=== PATIENT | female | born 1995 | race Caucasian/White ===

== ENCOUNTER 2016-04-28 16:07 | Emergency (ER) | payer OTHER ==
[~2016-04-28] VITALS: Ht 162.6 cm; Wt 63.6 kg
[~2016-04-28 16:07] MED LIST: AMPH20TA2 PO; FLM4 PO; OXYC-57 PO
[2016-04-28 16:17] VITALS: TEMP 36.7; O2SAT 98; Ht 162.6 cm; Wt 63.6 kg
[2016-04-28 17:24] LABS: BASO % 0.8 %; BASO ABS # 0.05 K/uL (0-0.2); COMPLETE YES; EOS % 1.3 %; HEMATOCRIT 41.5 % (37-47); IG% 0.2 %; LYMPH % 31.3 %; LYMPH ABS # 1.96 K/uL (1.2-3.4); MEAN CELL VOLUME 85.7 fL (80-100); MEAN CORPUSCULAR HEMOGLOBIN 30.6 pg (25-34); MEAN CORPUSCULAR HGB CONC 35.7 g/dl (32-36); MEAN PLATELET VOLUME 9.1 fL (7.4-10.4); NEUT % 61.4 %; PLATELET COUNT 198 K/uL (130-400); RED BLOOD COUNT 4.84 M/uL (4.2-5.4); WHITE BLOOD COUNT 6.26 K/uL (4.8-10.8)
[2016-04-28 17:41] LABS: PREG INTERNAL NEGATIVE QC NEG CLEAR BACKGROUND; PREG INTERNAL POSITIVE QC POS CONTROL LINE
[2016-04-28 17:43] LABS: BUN/CREATININE RATIO 11.3 (10-20); CALCIUM 8.4 mg/dl (8.5-10.1); CREATININE 0.67 mg/dl (0.60-1.20); POTASSIUM 3.3 mmol/L (3.5-5.1)
--- NOTE | 2016-04-28 18:17 | DIAGNOSTIC IMAGING REPORT ---
CT OF THE HEAD WITHOUT CONTRAST CLINICAL HISTORY: Alcohol overdose. Evaluate for bleed. COMPARISON STUDY: No previous studies for comparison. CT DOSE: 1160.96 mGy.cm TECHNIQUE: Helical axial images of the head were obtained without IV contrast. Automated exposure control was utilized for the study. FINDINGS: This study is mildly compromised due to difficulty with patient positioning. Brain volume is normal. No acute intracranial hemorrhage, midline shift or mass effect is present. Ventricular system is normal. The basilar cisterns are patent. No extra-axial collections are present. Gibson-white differentiation is maintained. There is no calvarial fracture. IMPRESSION: 1. No acute intracranial findings. 2. No calvarial fracture. 3. Study mildly compromised due to difficulty with patient positioning. Electronically signed by: Steffen Read M.D. 04/28/2016 6:15 PM Dictated Date/Time: 04/28/2016 6:12 PM
[2016-04-28 23:03] VITALS: BP 127/86; PULSE 78; O2SAT 98
--- NOTE | 2016-04-28 23:24 | EMERGENCY ROOM VISIT NOTE ---
History Report prepared by Kendell: Yasmeen Hernandez Under the Supervision of: Dr. Carl Sanderson M.D. First contact with patient: 16:09 Stated Complaint: ALCOHOL OVERDOSE History of Present Illness The patient is a 20 year old female who presents to the Emergency Room with possible alcohol overdose. Per EMS, the [facility]. He states she was face down in the dirt. She was fully clothed. She denies any headache. She states she is not . This HPI is limited due to the patient's intoxication. Source of History: EMS History Limited By: intoxication Position: other (global) Quality: other (intoxication) Associated Symptoms: No headache Review of Systems See HPI for pertinent positives & negatives. ROS is limited due to patient's intoxication. Past Medical & Surgical Medical Problems: (1) No Known Active Medical Problems Social History Marital Status: single Housing Status: lives with roommate Occupation Status: [employer] student Current/Historical Medications Scheduled Amphetamine-Dextroamphetamine 20MG (Adderall 20MG), 20 MG PO QAM Tamsulosin HCl (Tamsulosin HCl), 0.4 MG PO QAM Scheduled PRN Oxycodone/Acetaminophen 5MG/325MG (Percocet 5MG/325MG), 2 TABLETS PO Q6H PRN for Pain Allergies Coded Allergies: No Known Allergies (Unverified , 12/03/15) Physical Exam Vital Signs Date Time Temp Pulse Resp B/P Pulse Ox O2 Delivery O2 Flow Rate FiO2 04/28/16 23:03 78 20 127/86 98 Room Air 04/28/16 22:22 85 04/28/16 21:58 80 16 113/82 100 Nasal Cannula 2.0 04/28/16 21:28 95 18 121/76 100 Nasal Cannula 2.0 04/28/16 20:58 106 18 131/77 100 Nasal Cannula 2.0 04/28/16 20:28 98 18 115/78 100 Nasal Cannula 2.0 04/28/16 19:58 98 16 132/74 100 Nasal Cannula 2.0 04/28/16 19:28 92 19 125/75 100 Nasal Cannula 2.0 04/28/16 18:58 94 19 121/68 100 Nasal Cannula 2.0 04/28/16 18:26 123 18 134/88 100 Nasal Cannula 2.0 04/28/16 17:00 91 16 129/81 100 Nasal Cannula 2.0 04/28/16 16:51 113 04/28/16 16:26 100 Nasal Cannula 2.0 04/28/16 16:25 93 16 77 Room Air 04/28/16 16:20 115 15 151/95 98 Room Air 04/28/16 16:17 36.7 106 20 140/93 98 Room Air 04/28/16 16:17 98 Room Air Physical Exam Constitutional: Vital signs reviewed. The patient is crying and hyperventilating. Eyes: Pupils are equal round reactive to light. Conjunctiva are noninjected. ENT: Normocephalic atraumatic. No signs of tenderness to the skull or erythema. There is a small abrasion to the lower lip which she states her roommate did. Pharynx is clear without erythema or exudate. Mucous membranes are moist. Neck supple without meningeal signs. No midline tenderness to cervical spine. Respiratory: Clear to auscultation bilaterally. Breath sounds are equal bilaterally. Cardiovascular: Regular rate and rhythm. No rubs or gallops. GI: Soft, nondistended and nontender. Bowel sounds are present. Musculoskeletal: Small abrasion to the left knee. Integumentary: No cyanosis. Neurological: The patient is awake and alert. No focal deficits. Psychiatric: Unable to assess. Medical Decision & Procedures ER Provider Diagnostic Interpretation: CT results as stated below per my review and radiologist interpretation. CT OF THE HEAD WITHOUT CONTRAST CLINICAL HISTORY: Alcohol overdose. Evaluate for bleed. COMPARISON STUDY: No previous studies for comparison. CT DOSE: 1160.96 mGy.cm TECHNIQUE: Helical axial images of the head were obtained without IV contrast. Automated exposure control was utilized for the study. FINDINGS: This study is mildly compromised due to difficulty with patient positioning. Brain volume is normal. No acute intracranial hemorrhage, midline shift or mass effect is present. Ventricular system is normal. The basilar cisterns are patent. No extra-axial collections are present. Gibson-white differentiation is maintained. There is no calvarial fracture. IMPRESSION: 1. No acute intracranial findings. 2. No calvarial fracture. 3. Study mildly compromised due to difficulty with patient positioning. Electronically signed by: Steffen Read M.D. 04/28/2016 6:15 PM Dictated Date/Time: 04/28/2016 6:12 PM Laboratory Results 04/28/16 16:40 Red Blood Count 4.84, Mean Corpuscular Volume 85.7, Mean Corpuscular Hemoglobin 30.6, Mean Corpuscular Hemoglobin Concent 35.7, Mean Platelet Volume 9.1, Neutrophils (%) (Auto) 61.4, Lymphocytes (%) (Auto) 31.3, Monocytes (%) (Auto) 5.0, Eosinophils (%) (Auto) 1.3, Basophils (%) (Auto) 0.8, Neutrophils # (Auto) 3.85, Lymphocytes # (Auto) 1.96, Monocytes # (Auto) 0.31, Eosinophils # (Auto) 0.08, Basophils # (Auto) 0.05 04/28/16 16:40 Test 04/28/16 16:40 White Blood Count 6.26 K/uL (4.8-10.8) Red Blood Count 4.84 M/uL (4.2-5.4) Hemoglobin 14.8 g/dL (12.0-16.0) Hematocrit 41.5 % (37-47) Mean Corpuscular Volume 85.7 fL (80-100) Mean Corpuscular Hemoglobin 30.6 pg (25-34) Mean Corpuscular Hemoglobin Concent 35.7 g/dl (32-36) Platelet Count 198 K/uL (130-400) Mean Platelet Volume 9.1 fL (7.4-10.4) Neutrophils (%) (Auto) 61.4 % Lymphocytes (%) (Auto) 31.3 % Monocytes (%) (Auto) 5.0 % Eosinophils (%) (Auto) 1.3 % Basophils (%) (Auto) 0.8 % Neutrophils # (Auto) 3.85 K/uL (1.4-6.5) Lymphocytes # (Auto) 1.96 K/uL (1.2-3.4) Monocytes # (Auto) 0.31 K/uL (0.11-0.59) Eosinophils # (Auto) 0.08 K/uL (0-0.5) Basophils # (Auto) 0.05 K/uL (0-0.2) RDW Standard Deviation 40.1 fL (36.4-46.3) RDW Coefficient of Variation 12.9 % (11.5-14.5) Immature Granulocyte % (Auto) 0.2 % Immature Granulocyte # (Auto) 0.01 K/uL (0.00-0.02) Anion Gap 12.0 mmol/L (3-11) Est Creatinine Clear Calc Drug Dose 116.7 ml/min Estimated GFR () 147.7 Estimated GFR (Non- 127.4 BUN/Creatinine Ratio 11.3 (10-20) Calcium Level 8.4 mg/dl (8.5-10.1) Human Chorionic Gonadotropin, Qual NEG (NEG) Ethyl Alcohol mg/dL 319.0 mg/dl (0-3) Laboratory results as reviewed by me. ECG Indication: syncope Rate (beats per minute): 94 Rhythm: normal sinus Findings: no acute ischemic change, no ectopy ED Course 1611: The patient was evaluated in room B12. A complete history and physical exam was performed. 1615: The patient passed out for a short amount of time. 1633: The patient passed out again for 30 seconds. Her O2 stats dropped to 77%. She is now awake, alert and crying. She continues to deny pain. 1901: The patient is resting comfortably. 2155: The patient is still sleeping. Vitals are stable. 2252: The patient is awake, alert, and has no complaints. I discussed her care with her. She is able to ambulate without difficulty. A sober friend is coming to pick her up. 2304: Upon reevaluation, the patient appeared to have improvement of her symptoms. I discussed tonight's findings with her. She verbalized agreement of the treatment plan. She was discharged home. Medical Decision This is a 20-year-old female presents with altered mental status. Additional history was obtained from EMS due to the patient's condition. Differential diagnosis: Etiologies such as alcohol intoxication, hypoglycemia, electrolyte abnormality, illicit drug use, intracranial hemorrhage as well as others were considered. ER treatment provided: The patient was placed on a continuous cardiac cath rn and pulse oximetry. The patient was hyperventilating and she passed out briefly twice. This is likely from hyperventilation but further workup was obtained. I did obtain a 12-lead EKG as described above. An IV was placed. Diagnostic studies: I did order and review the patient's lab work including an alcohol level, CBC and PRP. CT scan of the head was obtained which was unremarkable. I did review the scan myself as well as the radiology report. Disposition: On reassessment the patient is awake and alert. Neurological exam is unremarkable. Gait is normal without assistance. Speech is normal. The patient confirms alcohol over indulgence tonight. Return instructions were outlined and the patient was discharged in good condition. Arrangements were made for safe transportation home. Referral: The patient was referred back to their primary care physician for follow-up in 2 to 3 days for recheck and further evaluation. Impression Primary Impression: Alcohol overdose Additional Impression: Syncope Scribe Attestation The scribe's documentation has been prepared under my direct and personally reviewed by me in its entirety. I confirm that the note above accurately reflects all work, treatment, procedures, and medical decision making performed by me. Departure Information Dispostion Home / Self-Care Forms HOME CARE DOCUMENTATION FORM, IMPORTANT VISIT INFORMATION Patient Instructions Alcohol Intoxication - [facility], [facility]: [employer] Students and Alcohol Related Visits , My [facility], Syncope Additional Instructions You have been examined and treated today on an emergency basis only. This is not a substitute for, or an effort to provide, complete comprehensive medical care. It is impossible to recognize and treat all injuries or illnesses in a single emergency department visit. It is therefore important that you follow up closely with your physician. Call as soon as possible for an appointment. Return for worsening symptoms or if you develop fever, vomiting, chest pain, shortness breath, headache or any other concerning symptoms. Do not drink any alcohol. Problem Qualifiers
== END 2016-04-28 23:33 | disposition home or self-care (01) ==
LOC: EDUNIT# 16:07 → C.EDB 16:10
DX: T51.0X1A Toxic effect of ethanol, accidental (unintentional), initial encounter (principal); R55 Syncope and collapse

== ENCOUNTER 2016-05-19 13:12 | Emergency (ER) | payer OTHER ==
[~2016-05-19] VITALS: Ht 162.6 cm; Wt 61.5 kg
[2016-05-19 13:20] VITALS: TEMP 36.8; Ht 162.6 cm; Wt 61.5 kg
--- NOTE | 2016-05-19 14:59 | DIAGNOSTIC IMAGING REPORT ---
KUB CLINICAL HISTORY: Right flank pain. FINDINGS: 2 AP abdominal radiograph are compared to study dated 12/21/2015. Correlation is made with abdominal CT dated 12/03/2015. There is a nonobstructed abdominal bowel gas pattern. [id number] colonic fecal retention is observed. 2 small nonobstructing right renal calculi are identified. No calcifications are seen projecting over the left kidney or along the course of the ureters. The bony structures appear intact. IMPRESSION: 1. There are at least 2 small nonobstructing right renal calculi. 2. There is no radiographic evidence of left renal calculus or ureteral calculus. 3. Nonobstructed abdominal bowel gas pattern noting mild to moderate colonic fecal retention. Electronically signed by: Alfredito Parker M.D. 05/19/2016 2:57 PM Dictated Date/Time: 05/19/2016 2:56 PM
[2016-05-19 15:20] VITALS: BP 134/71; PULSE 92; O2SAT 97
[2016-05-19 15:28] LABS: MANUAL MICROSCOPIC REQUIRED? YES; URINE APPEARANCE CLEAR (CLEAR); URINE BILIRUBIN NEG (NEG); URINE COLOR YELLOW; URINE NITRITE NEG (NEG); URINE SPECIFIC GRAVITY >= 1.030 (1.000-1.030); UROBILINOGEN NEG (NEG)
[2016-05-19 15:29] LABS: REVIEW REQ? NO
[2016-05-19 15:41] LABS: URINE RBC >30 /hpf (0-4)
[2016-05-19 15:42] LABS: URINE BACTERIA 1+ (NEG)
[2016-05-19 15:48] LABS: ZZUR CULT IF INDIC CLEAN CATCH YES
[2016-05-19] MEDS ORDERED: OXYC-57 PO (15:48)
--- NOTE | 2016-05-19 15:50 | EMERGENCY ROOM VISIT NOTE ---
History First contact with patient: 13:48 Chief Complaint: KIDNEY STONE Stated Complaint: KIDNEY STONES History of Present Illness The patient is a 20 year old female who presents to the Emergency Room with complaints of intermittent right flank pain. The patient reports she has a history of kidney stones. She states that yesterday when she woke up, she had some discomfort in the right flank. She states that she initially thought this may be a UTI, but it does not feel like her typical UTIs. She states the pain worsened yesterday and she has had a few instances of severe, 10/10 pain. She states that just prior to my evaluation, she urinated and believes that she passed a kidney stone. She states that she saw a small piece of debris in the toilet and that she has no discomfort at this time. She states that the flank pain was radiating into her abdomen and groin. She denies any sensory nausea, vomiting or urinary symptoms. She denies any fevers/chills, changes in bowel movements, or abnormal vaginal bleeding. Review of Systems A complete 10-point Review of Systems was discussed with the patient, with pertinent positives and negatives listed in the History of Present Illness. All remaining Review of Systems questions can be considered negative unless otherwise specified. Past Medical/Surgical History Medical Problems: (1) No Known Active Medical Problems Social History Smoking Status: Never Smoker Drug Use: none Marital Status: single Housing Status: lives with roommate Occupation Status: [employer] student Current/Historical Medications Scheduled Amphetamine-Dextroamphetamine 20MG (Adderall 20MG), 20 MG PO QAM Scheduled PRN Oxycodone/Acetaminophen 5MG/325MG (Percocet 5MG/325MG), 2 TABLETS PO Q6H PRN for Pain Oxycodone/Acetaminophen 5MG/325MG (Percocet 5MG/325MG), 1-2 TABS PO Q6H PRN for Pain Allergies Coded Allergies: No Known Allergies (Unverified , 05/19/16) Physical Exam Vital Signs Date Time Temp Pulse Resp B/P Pulse Ox O2 Delivery O2 Flow Rate FiO2 05/19/16 15:20 92 18 134/71 97 Room Air 05/19/16 13:20 36.8 104 18 132/80 98 Room Air Physical Exam VITALS: Vitals are noted on the nurse's note and reviewed by myself. Vital signs stable. GENERAL: This is a 20-year-old female, in no acute distress, nondiaphoretic, well-developed well-nourished. SKIN: Capillary reflex less than 2 seconds. HEENT: Normocephalic. PERRLA. EOMI. Nares. Mucous membranes moist. Neck is supple without nuchal rigidity. HEART: Regular rate and rhythm without murmurs gallops or rubs. LUNGS: Clear to auscultation bilaterally without wheezes, rales or rhonchi. ABDOMEN: Positive bowel sounds x 4. Soft, nontender to palpation. MUSCULOSKELETAL: No CVA tenderness. NEURO: Patient was alert and oriented to person place and time. Medical Decision & Procedures ER Provider Diagnostic Interpretation: KUB CLINICAL HISTORY: Right flank pain. FINDINGS: 2 AP abdominal radiograph are compared to study dated 12/21/2015. Correlation is made with abdominal CT dated 12/03/2015. There is a nonobstructed abdominal bowel gas pattern. [id number] colonic fecal retention is observed. 2 small nonobstructing right renal calculi are identified. No calcifications are seen projecting over the left kidney or along the course of the ureters. The bony structures appear intact. IMPRESSION: 1. There are at least 2 small nonobstructing right renal calculi. 2. There is no radiographic evidence of left renal calculus or ureteral calculus. 3. Nonobstructed abdominal bowel gas pattern noting mild to moderate colonic fecal retention. Laboratory Results Test 05/19/16 14:15 Urine Color YELLOW Urine Appearance CLEAR (CLEAR) Urine pH 6.0 (4.5-7.5) Urine Specific [place] >= 1.030 (1.000-1.030) Urine Protein NEG (NEG) Urine Glucose (UA) NEG (NEG) Urine Ketones NEG (NEG) Urine Occult Blood 3+ (NEG) Urine Nitrite NEG (NEG) Urine Bilirubin NEG (NEG) Urine Urobilinogen NEG (NEG) Urine Leukocyte Esterase NEG (NEG) Urine RBC >30 /hpf (0-4) Urine WBC 1-5 /hpf (0-5) Urine Epithelial Cells >30 /lpf (0-5) Urine Bacteria 1+ (NEG) Urine Test NEG (NEG) Medical Decision Differential diagnosis includes renal calculus, urinary tract infection, musculoskeletal pain, among others. The patient was evaluated as above. She has had right flank pain and has had kidney stones in the past. The patient denies any pain at this time and states that she feels she may have passed a kidney stone just prior to my evaluation. A urinalysis was performed, which did show 3+ blood in the urine as well as evidence of contamination, but no convincing evidence of infection. The urine will be sent for culture. KUB was performed and it showed 2 stones within the right kidney, but no obstructing stones. The patient refused any laboratory testing. I did give the patient an additional prescription for pain medication in case her symptoms return. She will follow-up with her primary care provider as needed. Based on the patient's presentation, lab results, and imaging studies, I feel the patient is stable for outpatient treatment. Discharge instructions were reviewed with the patient. The patient verbalized understanding of my assessment and treatment plan and was discharged home in good condition. Impression Primary Impression: Renal colic on right side Departure Information Dispostion Home / Self-Care Condition GOOD Prescriptions Oxycodone/Acetaminophen 5MG/325MG (PERCOCET 5MG/325MG) Tab 1-2 TABS PO Q6H Y for Pain, #15 TAB For Initial Treatment Prov: Char Naidu .SUSY 05/19/16 Referrals No Doctor, Assigned (PCP) Patient Instructions My [facility] Additional Instructions You have been treated in the Emergency Department today for a probable Kidney Stone (Nephrolithiasis). You have been prescribed Percocet to be used for pain control. This is a narcotic medication. You cannot drive or consume alcohol while on this medicine. This medicine should only be used for pain that cannot be controlled with [id number] pain medicines. For pain control, you can use the following [id number]-mic-[id number] medicines (if >12 yo): - Regular strength (325mg/tab) Tylenol (acetaminophen) 2 tabs every 4-6 hours as needed. Do not exceed 12 tablets in a 24 hour period. Avoid taking more than 4 grams (4000 mg) of Tylenol per day. This includes any other sources of acetaminophen you may take on a regular basis. - Regular strength (200 mg/tab) Advil (ibuprofen) 1-2 tabs every 4-6 hours as needed. Do not exceed a dose of 3200 mg per day. Follow-up with your primary care provider or urologist as needed. Return to the Emergency Department if your symptoms persist despite the treatment plan outlined above or if you develop the following symptoms: intractable pain, fever, chills, or large amounts of blood in your urine.
== END 2016-05-19 15:50 | disposition home or self-care (01) ==
LOC: C.EDB 13:13 → C.EDA 15:50
DX: N23 Unspecified renal colic (principal)